=== PATIENT | male | born 1935 | race Caucasian/White ===

== ENCOUNTER → 2017-02-02 | Outpatient (CLI) | payer OTHER ==
[~2017-02-02] VITALS: Ht 182.9 cm; Wt 113.4 kg
[~2017-02-02] MED LIST: ASPIRIN EC81 M1 PO; ATORVASTATIN CA40 MG PO; CALCIUM + VIT1 EACH PO; CLARITIN10 MG PO; FLOMAX0.4 MG PO; GLUCOSAMINE &1 EAC1 PO; GLUCOSAMINE-CH1 EA30 PO; LISINOPRIL10 MG PO; OMEPRAZOLE 20 M20 M1 PO; PACERONE 200 M200 M1 PO; SIMVASTATIN40 MG PO; SPIRIVA INH; VITAMIN C1000 MG PO; VITAMINC500 PO; ZYRTEC10 M2 PO
--- NOTE | ~2017-02-02 | CATHLAB ---
[facility] [address] [place] [address] INVASIVE PROCEDURE REPORT Name: MEETADOC L [id number] Admission: 02/02/17 Attend Phys: Ten Jenkins Discharge: Date of : 37 Date of Service: 02/04/17 1159 Report #: [id number] THIS REPORT FOR: //name// APPROVED REPORT Patient Location: Room #: Stress Nurse: AVNRT ABLATION SVT PROCEDURE PROCEDURES PERFORMED 1. EP STUDY 2. SVT ABLATION 3. 3D MAPPING 4. 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 This was terminated with adenosine. He continued to have episodes and was started on amiodarone. He is here for EP study and possible ablation. Informed consent: The patient underwent informed consent were we discussed the details of the procedure including the need for possible transseptal access. We also discussed the risks which include but are not limited to bleeding vascular damage cardiac perforation stroke, AK or damage to the afognak conduction system requiring permanent pacemaker. She understood these risks and was willing to proceed. Anesthesia: The patient was sedated by the anesthesiology service with no anesthesia related complications. Procedure: The patient was prepped and draped in a sterile fashion. I then injected lidocaine to the bilateral groin regions. I obtained access to the bilateral [facility] [address] [place] [address] INVASIVE PROCEDURE REPORT Name: MEETADOC L Room #: REG [facility]#: [id number] Admission: 02/02/17 Attend Phys: Ten [facility] Discharge: Date of : 37 Date of Service: 02/04/17 1159 Report #: [id number] femoral veins and placed sheaths using the modified Salinger technique. In the right femoral vein I placed an 8 Welsh and 6 Welsh short sheath. In the left femoral vein and placed a 6 Welsh and locking 7 Welsh short sheath. Next under fluoroscopy I placed 3 quadripolar catheters into the HRA HIS and RV positions. A decapolar catheter was placed into the coronary sinus. With placement of catheters, the patient went into SVT which looked like the clinical arrhythmia previously documented. A basic EP study was then performed. Baseline findings: At baseline, the patient was in sinus rhythm with a sinus cycle length of 890 ms a IA interval of 215 ms a QRS duration of 130 ms the QT interval of 500 ms and AH interval of 115 ms and HV interval 50 ms. Atrial pacing was performed and AV block was noted at 480 ms. AV bautista ERP was noted at 420 ms at a [address] cycle length with single AV bautista echoes noted. Ventricular pacing was performed and there was evidence of no VA conduction at 600 ms. An isoproterenol infusion was initiated at 1 g. with single atrial extrastimuli, the patient went into supraventricular tachycardia with a tachycardia cycle length of 580 ms and a septal VA time of 35 ms. Ventricular entrainment was performed and there was a VA HV response consistent with typical AV bautista reentrant tachycardia. Once I induce the tachycardia, it was difficult to terminate with ventricular burst pacing. 3-D mapping and SVT ablation: Next, I removed the HRA catheter and short sheath and exchanged this for a Bios[employer] [place] 4 mm ablation catheter and a SR 0 sheath. Next I created a detailed 3-D geometry with specific emphasis of the His bundle coronary sinus ostium and slow pathway region. Next ablation was performed at 50 W 55 in the area of the slow pathway. I performed a total of 6 ablation lesions I areas where there were nice slow pathway potentials. However despite these lesions I did not see any junctional beats. I decided to perform post-ablation testing at this point. [facility] [address] [place] [address] INVASIVE PROCEDURE REPORT Name: DOC TIM [facility] #: [id number] Admission: 02/02/17 Attend Phys: Ten Jenkins Discharge: Date of : 37 Date of Service: 02/04/17 1159 Report #: [id number] Post-ablation testing: Isoproterenol was reinitiated and further testing was performed. AV block was noted at 410 ms. AV bautista ERP was noted at 330 ms at a [address] cycle length. Double atrial extrastimuli were delivered. There were no AV bautista echoes noted. Next ventricular burst pacing was performed and VA block was noted at 520 ms. I performed atrial burst pacing maneuvers for 30 minutes and compared to prior to ablation, the patient was very inducible, I could no longer induce tachycardia. As such the procedure was terminated. The patient was in sinus rhythm with a sinus cycle length of 690 ms. Unable 200 ms QRS duration 130 milliseconds QT interval 400 ms AH interval 100 ms HV interval 50 ms. As such, the procedure was concluded. All catheters and sheaths were pulled and hemostasis was obtained. There were no complications and no significant bleeding. The patient awoke neurologically and hemodynamically intact. Conclusion Conclusion: 1. 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 2. Normal SA bautista function 3. Normal AV bautista function. 4. Normal His-Purkinje function. 5. No other inducible arrhythmias on or off isoproterenol. <ELECTRONICALLY SIGNED> By: Ten Jenkins MD 02/04/17 1159 1159 1159 Ten Jenkins MD /INF
[2017-02-02 07:17] LABS: ABSOLUTE NEUTROPHILS 3.3 thou/uL (1.4-8.2); BASOPHILS 0.6 % (0.0-2.0); EOSINOPHILS 2.4 % (0.0-3.0); HEMATOCRIT 41.4 % (42.0-52.0); HEMOGLOBIN 13.5 gm/dL (14.0-18.0); LYMPHOCYTES 25.8 % (24.0-44.0); MCH 33.3 pg (26.0-34.0); MCHC 32.7 g/dL (28.0-37.0); MCV 101.9 fL (80.0-100.0); MONOCYTES 11.2 % (1.0-8.0); PLATELET COUNT 275 thou/uL (150-400); RBC 4.06 mil/uL (4.50-6.00); RDW 14.2 % (10.5-14.5); WBC 5.6 thou/uL (4.0-11.0)
[2017-02-02 07:24] LABS: MANUAL DIFF NO
[2017-02-02 07:25] VITALS: BP 167/74
[2017-02-02 07:27] LABS: CALCIUM 9.4 mg/dL (8.5-10.1); CREATININE 1.4 mg/dL (0.7-1.3); POTASSIUM 4.3 mmol/L (3.5-5.1)
[2017-02-02 07:32] LABS: APTT 35.5 Seconds (24.5-32.8)
[2017-02-02 07:33] LABS: ALBUMIN 4.2 g/dL (3.4-5.0); TOTAL BILIRUBIN 0.5 mg/dL (<0.1-1.0); TOTAL PROTEIN 7.4 g/dL (6.4-8.2)
== END ==
LOC: CATH 06:45
PROVIDERS: Internal Medicine Cardiovascular Disease
DX: I25.10 Atherosclerotic heart disease of native coronary artery without angina pectoris (principal); I10 Essential (primary) hypertension; J44.9 Chronic obstructive pulmonary disease, unspecified; K21.9 Gastro-esophageal reflux disease without esophagitis; E78.5 Hyperlipidemia, unspecified; I47.1 Supraventricular tachycardia; I71.4 Abdominal aortic aneurysm, without rupture; I25.2 Old myocardial infarction; E66.9 Obesity, unspecified; Z79.899 Other long term (current) drug therapy; Z85.51 Personal history of malignant neoplasm of bladder; Z87.891 Personal history of nicotine dependence
CPT/HCPCS: 62110; 62900; 70005

== ENCOUNTER → 2020-02-22 | Outpatient (CLI) | payer MEDICARE | LOC: SJCVC 15:08 | PROVIDERS: ATTEND Internal Medicine Cardiovascular Disease | DX: R94.31 Abnormal electrocardiogram [ECG] [EKG] (principal); I44.7 Left bundle-branch block, unspecified; I48.92 Unspecified atrial flutter; I47.1 Supraventricular tachycardia; I48.11 Longstanding persistent atrial fibrillation; Z79.899 Other long term (current) drug therapy; Z87.891 Personal history of nicotine dependence ==